=== PATIENT | female | born 1985 | race Caucasian/White ===

== ENCOUNTER 2024-06-19 13:55 | Emergency (ER) | payer SELFPAY ==
[~2024-06-19] VITALS: Ht 162.6 cm; Wt 78.0 kg
[2024-06-19 14:08] VITALS: O2SAT 100
[2024-06-19 16:46] LABS: CLARITY URINE CLEAR (CLEAR); COLOR URINE YELLOW (YELLOW); GLUCOSE URINE NEGATIVE (NEGATIVE); KETONES URINE NEGATIVE (NEGATIVE); LEUKOCYTE ESTERASE URINE 1+ (NEGATIVE); NITRITE URINE NEGATIVE (NEGATIVE); OCCULT BLOOD URINE 2+ (NEGATIVE); PH URINE 7.5 (4.5-8.0); PROTEIN URINE NEGATIVE (NEGATIVE)
[2024-06-19 17:21] LABS: BACTERIA URINE TRACE; SQUAMOUS EPITHELIAL CELL URINE FEW /lpf (RARE/1+)
[2024-06-19 18:35] LABS: BASOPHILS % 0.8 % (0.0-2.0); EOSINOPHILS % 1.3 % (0.0-5.0); HEMATOCRIT. 37.1 % (36.0-48.0); HEMOGLOBIN. 12.2 g/dL (12.0-16.0); LYMPHOCYTES % 23.1 % (20.0-50.0); MEAN CORPUSCULAR HGB CONC 32.8 g/dL (31.0-37.0); MEAN CORPUSCULAR VOLUME 91.6 fL (81.0-99.0); MEAN PLATELET VOLUME 10.1 fl (7.4-10.4); MONOCYTES % 6.3 % (2.0-8.0); NEUTROPHILS % 68.5 % (40.0-76.0); PLATELET 276 x1000/uL (130-400); RED BLOOD CELL COUNT 4.05 mill/uL (4.2-5.4)
[2024-06-19 18:41] LABS: CHLORIDE 109 mEq/L (98-107); POTASSIUM 3.9 mEq/L (3.5-5.1); SODIUM 138 mEq/L (136-145)
[2024-06-19 18:42] LABS: CALCIUM 9.3 mg/dL (8.7-10.4); CARBON DIOXIDE 21 mEq/L (21-32)
[2024-06-19 18:47] LABS: CREATININE 0.7 mg/dL (0.6-1.0); GLUCOSE 94 mg/dL (70-105)
[2024-06-19 18:48] LABS: UREA NITROGEN BLOOD < 5 mg/dL (9-23)
[2024-06-19 18:49] LABS: ALANINE AMINOTRANSFERASE 8 IU/L (10-49); ASPARTATE AMINOTRANSFERASE 15 IU/L (<34); BILIRUBIN TOTAL 0.2 mg/dL (0.1-1.0); PROTEIN TOTAL 6.9 g/dL (6.0-8.3)
[2024-06-19 19:30] LABS: B-HCG QUANTITATIVE 84725 mIU/mL (<3); BILIRUBIN DIRECT < 0.1 mg/dL (<=3.0)
[2024-06-19] MEDS ORDERED: CEPH500T MT (19:49)
[2024-06-19 20:25] VITALS: BP 129/80; PULSE 69; RESP 18; TEMP 36.7; O2SAT 99
== END 2024-06-19 20:31 | disposition home or self-care (01) ==
LOC: ER 13:55
DX: O23.41 Unspecified infection of urinary tract in pregnancy, first trimester (principal); N39.0 Urinary tract infection, site not specified; O20.0 Threatened abortion; Z3A.11 11 weeks gestation of pregnancy
CPT/HCPCS: 36415; 76801; 80048; 80076; 81003; 81025; 84702; 85025; 86850; 86900; 99284